=== PATIENT | female | born 1955 | race Caucasian/White ===

== ENCOUNTER 2016-08-24 08:33 | Emergency (ER) | payer MEDICARE ==
[2016-08-24] MEDS ORDERED: LABETALOL 100 MG/20 ML VIAL ONE (09:10)
[2016-08-24] MEDS ORDERED: ACETAMINOPHEN 325 MG TAB ONE (11:35)
== END 2016-08-24 12:05 | disposition home or self-care (01) ==
LOC: ER 08:33
DX: I10 Essential (primary) hypertension (principal); R51 Headache
CPT/HCPCS: 36415; 80053; 81001; 83735; 85025; 87088; 93005; 96374